=== PATIENT | male | born 1985 | race African-American/Black ===

== ENCOUNTER 2022-07-05 07:06 | Inpatient (IN) | payer OTHER ==
[~2022-07-05] VITALS: Ht 182.9 cm; Wt 117.9 kg
[2022-07-05 08:13] LABS: HEMOGLOBIN 13.9 gm/dl (14.0-17.5); RED BLOOD COUNT 4.47 M/UL (4.20-5.50); WHITE BLOOD COUNT 8.3 K/UL (4.5-11.0)
[2022-07-05 09:04] LABS: BUN/CREATININE RATIO 19 (0-10)
[2022-07-05] MEDS ORDERED: MIRTAZAPINE30 MG PO (11:27)
[2022-07-05] MEDS ORDERED: VITAMIN D3125 MCG PO (11:27)
[2022-07-05] MEDS ORDERED: VRAYLAR3 MG PO (11:27)
[2022-07-05] MEDS ORDERED: TAB-A-VITE TA400 MCG PO (11:28)
--- NOTE | 2022-07-05 16:15 | NUR ---
SINCE ARRIVING TO FLOOR PT. HAS BEEN PACING FLOOR AND ANXIOUS, STATING HE WANTS TO LEAVE. STATES HE HAS A BUS TO CATCH AND INSISTS I CALL DR. ALVARES. DR. ALVARES AND LISA ([facility]). TALKING WITH PT. AND CONVERSATION ENDED IN INITIATION OF INVOLUNTARY HOLD. SHORTLY AFTER PT. STARTS BECOME AGITATED AND STATES HE'S LEAVING AND HEADS TOWARD ELEVATORS. ADELA ZAIDI CALLED AND ADDITIONAL STAFF ARRIVED. CURRENTLY WAITING ON [facility] DEPT (CALLED APPROX [phone]) TO COME TRANSPORT PT. FOR INVOLUNTARY HOLD.
--- NOTE | 2022-07-05 16:45 | NUR ---
'S DEPUTY HERE TO TRANSPORT PT.
[2022-07-06 07:11] LABS: HIV AB/P24 AG SCREEN Non Reactive (Non Reactive)
[2022-07-06 09:14] LABS: HBSAG SCREEN Negative (Negative); HCV AB 0.2 (0.0-0.9); HEP A AB, IGM Negative (Negative); HEP B CORE AB, IGM Negative (Negative)
== END 2022-07-05 16:50 | disposition short-term general hospital (02) | DRG 558 ==
LOC: ER1 07:06 → CDU 10:21 → M/S 11:25
PROVIDERS: Emergency Medicine; ADMIT Internal Medicine
DX: M62.82 Rhabdomyolysis (principal); B19.10 Unspecified viral hepatitis B without hepatic coma; F19.10 Other psychoactive substance abuse, uncomplicated; Z20.822 Contact with and (suspected) exposure to COVID-19; Z21 Asymptomatic human immunodeficiency virus [HIV] infection status; J45.909 Unspecified asthma, uncomplicated; F17.210 Nicotine dependence, cigarettes, uncomplicated; Z82.49 Family history of ischemic heart disease and other diseases of the circulatory system
CPT/HCPCS: 80053; 80074; 80307; 81001; 82550; 82553; 84439; 84443; 84484; 85025; 87389; 93005; 99285; U0002